=== PATIENT | male | born 1990 | race Caucasian/White ===

== ENCOUNTER 2022-04-14 15:52 | Emergency (ER) | payer OTHER ==
[~2022-04-14] VITALS: Ht 170.2 cm; Wt 56.8 kg
[2022-04-14 16:03] VITALS: TEMP 98.1
[2022-04-14] MEDS ORDERED: ATARAX 10MG/52 MG/ML PO (16:06)
[2022-04-14 17:01] LABS: HEMOGLOBIN 15.7 g/dl (13.5-18.0); MEAN CELL VOLUME 91 fl (80.0-100.0); MEAN CORPUSCULAR HEMOGLOBIN 31 pg (27-31); MEAN CORPUSCULAR HGB CONC 34 g/dl (33.0-37.0); MEAN PLATELET VOLUME 9.5 fl (7.4-10.4); PLATELET COUNT 315 K/mm3 (130-400); RED BLOOD COUNT 5.05 M/mm3 (4.20-5.60); REDCELL DISTRIBUTION WIDTH-CV 12.2 % (11.5-14.5)
[2022-04-14 17:18] LABS: ALBUMIN 4.3 gm/dL (3.5-5.0); CALCIUM 9.8 mg/dL (8.4-10.2); CREATININE, serum 0.8 mg/dL (0.72-1.25); PHOSPHOROUS 2.7 mg/dL (2.3-4.7); POTASSIUM 3.9 mmol/L (3.5-4.5)
[2022-04-14 17:50] VITALS: BP 130/81; PULSE 80
== END 2022-04-14 17:55 | disposition home or self-care (01) ==
LOC: COL.ER 15:52
PROVIDERS: Emergency Medicine
DX: R53.81 Other malaise (principal); R42 Dizziness and giddiness; Z28.310 Unvaccinated for COVID-19